=== PATIENT | female | born 1945 | race Caucasian/White ===

== ENCOUNTER → 2016-10-27 | Outpatient (CLI) | payer MEDICARE, MEDICAID ==
[~2016-10-27] MED LIST: ALBU17IN2 INH; ARIC10TA PO; ATEN25TA PO; BUSP10TA PO; DULC100C PO; EFFE150C PO; EFFE75CA75 PO; FLUT11IN INH; FURO20TA2 PO; KLOR1TAB69 PO; LORT5TAB PO; NEXI40CA PO; NITR4TASL SL; SIMV40TA2 PO; TIOT18INH INH; TRAZ50TA4 PO; ZOCO40TA PO; ZOLO50TA PO
--- NOTE | 2016-10-27 14:43 | REP ---
Whole body radionuclide bone scan The patient's history bladder cancer and presents for lymph nodes in the left chest wall. There are no comparison bone scans. Scanning is performed from the calvarium to the feet. Additionally oblique views of the ribs and pelvis are performed in lateral views of the calvarium in these are performed. On the lateral calvarial views there is focal uptake at the skull base on the left lateral view. Followup MRI might be considered to further evaluate. There is a degenerative pattern of uptake in the shoulders. There is no unusual uptake in the ribs or upper extremities except for focal increased uptake uptake at the base of the thumb on the left. There is faintly visible uptake at the base of the thumb on the right. This could be degenerative or post-traumatic. There is faintly visible uptake in the L5 vertebral body. There is a normal pattern of uptake in the pelvis. There is focal increased uptake at the medial joint line of the left knee, likely degenerative. There is focal increased uptake at the fibulotibial articulation of the right knee, also likely degenerative. Impression: There is a focus of increased uptake at the base of the calvarium on the left on the lateral calvarial views. Consider follow-up MRI to further evaluate. There is a degenerative uptake in the shoulders, thumb bases, and knees bilaterally. There is faintly visible uptake in the L5 vertebral body. Consider MRI to further evaluate. The study is performed with 19.9 mCi of technetium 99m labeled MDP. Signed by Leo Lynn MD 10/27/2016 02:36 P
== END ==
LOC: M RAD 10:39
PROVIDERS: ATTEND Physician Assistant
DX: R93.7 Abnormal findings on diagnostic imaging of other parts of musculoskeletal system (principal); Z85.51 Personal history of malignant neoplasm of bladder
CPT/HCPCS: 78306; A9503

== ENCOUNTER → 2016-11-07 | Outpatient (CLI) | payer MEDICARE, MEDICAID ==
--- NOTE | 2016-11-07 14:42 | REP ---
MRI CERVICAL SPINE WITHOUT AND WITH IV CONTRAST: HISTORY: Neck pain. History of bladder carcinoma. Pain radiating to the rib and shoulder area. TECHNIQUE: Axial and sagittal T1 and T2-weighted scans were obtained with without fat saturation in the usual fashion. Post-gadolinium enhanced T1 axial and sagittal images are also included. MRI FINDINGS: Craniocervical junction is normal. Cervical cord is normal in coarse, caliber and signal intensity on T1 and T2-weighted scans. There is no evidence of skeletal metastatic disease. Cervical vertebral body heights are preserved and alignment is normal. There is diffuse degenerative spondylosis change with degenerative disc disease at C3-4, C4-5, C5-6, C6-7 and to a lesser extent in the upper thoracic levels. Axial and sagittal images at the C2-3 show no significant abnormality. At C3-4, there is diffuse posterior disc bulging effacing the ventral subarachnoid space and contacting the ventral margin of the cord. No cord compression is seen. There is bilateral uncovertebral spurring at C3-4, however. At C4-5, there are similar changes with diffuse bulging and osteophytic ridging and bilateral uncovertebral spurring, mild in degree. At C5-6, diffuse disc bulging and posterior osteophytic ridging is seen effacing the ventral subarachnoid space. No cord compression is seen. Mild bilateral uncovertebral spurring is seen. Bilateral neural foraminal narrowing. At C6-7, there is posterior osteophytic ridging and diffuse disc bulging. Bilateral uncovertebral spurring and mild bilateral neural foraminal narrowing is seen. At C7-T1, there is no significant finding. There is central disc bulging at T2-T3. IMPRESSION: Moderate degenerative spondylosis change. Multilevel neural foraminal narrowing from uncovertebral spurring. No cord compressive lesion is seen. Signed by John Arguello MD 11/07/2016 03:59 P
--- NOTE | 2016-11-07 14:59 | REP ---
MRI LUMBAR SPINE WITHOUT AND WITH IV GADOLINIUM: HISTORY: Low back pain. History of bladder carcinoma. Questionable abnormality at L5 on radionuclide bone scan from October 27 2016. TECHNIQUE: Sagittal and axial imaging planes were utilized. T1 and T2-weighted scans were obtained with and without fat saturation in the usual fashion. The gadolinium enhancement dose is 9.6 mL , half-dose protocol, of intravenous ProHance. Post gadolinium enhanced axial and sagittal images are included. FINDINGS: Lumbar vertebral body heights are preserved. Alignment is normal except at L4-L5 where there is a grade 1 spondylolisthesis measuring 5 mm. This is due to degenerative disc and osteoarthritic facet disease. Advanced degenerative disc and facet changes are seen at this level. Advanced degenerative disc disease changes are noted at L5-S1 along with moderate facet changes. Degenerative spondylosis changes are also noted in the lesser degree at L3-4 and L2-3. The conus medullaris terminates at T12 and is unremarkable in appearance. At L2-3, there is diffuse disc bulging effacing the ventral margin of the thecal sac. No central canal stenosis or neural foraminal narrowing is seen. At L3-4, there is diffuse disc bulging and some posterior osteophytic ridging. There is left sided neural foraminal narrowing due to foraminal disc bulging. No central canal stenosis is seen. At L4-5, there is bilateral neural foraminal narrowing, right greater than left due to the spondylolisthesis as well as the disc bulging and facet hypertrophy. Mild central canal stenosis is noted at L4-5. Ligamentum flavum hypertrophy contributes to this as well as disc bulging. L5-S1, there is moderate osteoarthritic facet disease bilaterally. Diffuse disc bulging is seen. There is mild left-sided neural foraminal narrowing. IMPRESSION: Degenerative spondylosis changes as above. There is no evidence to suggest skeletal metastatic disease. Degenerative spondylosis changes most pronounced at L4-5 and L5-S1. No abnormal gadolinium enhancement is appreciated. Signed by John Arguello MD 11/07/2016 03:59 P
== END ==
LOC: M RAD 10:24
PROVIDERS: ATTEND Physician Assistant
DX: M47.812 Spondylosis without myelopathy or radiculopathy, cervical region (principal); M25.78 Osteophyte, vertebrae; M47.817 Spondylosis without myelopathy or radiculopathy, lumbosacral region; M47.816 Spondylosis without myelopathy or radiculopathy, lumbar region; M43.17 Spondylolisthesis, lumbosacral region
CPT/HCPCS: 72156; 72158; A9576

== ENCOUNTER → 2020-08-12 | Outpatient (CLI) | payer MEDICARE, MEDICAID ==
[~2020-08-12] MED LIST changes: -ARIC10TA PO; +ARIC1TAB2 PO; -EFFE150C PO; +EFFE150C2 PO; +EFFE75CA2 PO; -EFFE75CA75 PO; -SIMV40TA2 PO; +SIMV40TA20 PO; +TRAZ-252 PO; -TRAZ50TA4 PO
== END ==
LOC: M LABSMTC 13:08
PROVIDERS: ATTEND Family Medicine
DX: Z20.822 Contact with and (suspected) exposure to COVID-19 (principal)

== ENCOUNTER 2020-11-12 20:14 | Emergency (ER) | payer MEDICARE, MEDICAID ==
[~2020-11-12] VITALS: Ht 152.4 cm; Wt 45.5 kg
[2020-11-12] MEDS ORDERED: methylPREDNISolone 125MG 2ML VIAL IV ONE (21:35)
[2020-11-12] MEDS ORDERED: IPRATROPIUM 0.5MG/ALBUTEROL 2.5MG INH SOL UD 3ML (DUONEB) NEB ONE (21:35)
[2020-11-12 22:02] LABS: BASO % 0.4 % (0.0-1.0); EOS # 0.1 10^3/uL (0.0-0.5); EOS % 1.7 % (0.0-3.0); HEMOGLOBIN 13.5 g/dl (12.0-15.5); LYMPH # 2.5 10^3/uL (1.5-5.0); LYMPH % 29.5 % (24.0-44.0); MEAN CORPUSCULAR HEMOGLOBIN 30.4 pg (27.0-33.0); MEAN CORPUSCULAR HGB CONC 33.8 g/dl (32.0-36.5); MEAN CORPUSCULAR VOLUME 90.1 fl (80.0-96.0); MONO # 0.8 10^3/uL (0.0-0.8); MONO % 9.9 % (2.0-8.0); NEUTROPHILS # 4.9 10^3/uL (1.5-8.5); NEUTROPHILS % 58.1 % (36.0-66.0); PLATELET COUNT, AUTOMATED 268 10^3/uL (150-450); RED BLOOD COUNT 4.44 10^6/uL (4.00-5.40); WHITE BLOOD COUNT 8.4 10^3/uL (4.0-10.0)
[2020-11-12 22:12] LABS: INR 1.09; PROTHROMBIN TIME 14.4 SECONDS (12.5-14.3)
[2020-11-12 22:32] LABS: ALBUMIN 3.1 GM/DL (3.2-5.2); ALT/SGPT 13 U/L (12-78); BILIRUBIN,DIRECT 0.1 MG/DL (0.0-0.2); BILIRUBIN,TOTAL 0.3 MG/DL (0.2-1.0); BLOOD UREA NITROGEN 14 MG/DL (7-18); CALCIUM LEVEL 9.3 MG/DL (8.8-10.2); CARBON DIOXIDE LEVEL 30 MEQ/L (21-32); CHLORIDE LEVEL 104 MEQ/L (98-107); CK-MB VALUE MASS < 1.0 NG/ML (<3.6); CPK CREATINE PHOSPHOKINASE 37 U/L (26-192); GLOMERULAR FILTRATION RATE > 60.0 (>39); GLUCOSE, FASTING 106 MG/DL (70-100); NT-PRO BNP 198 PG/ML (<450); POTASSIUM SERUM 3.4 MEQ/L (3.5-5.1); SODIUM LEVEL 140 MEQ/L (136-145); THYROID STIMULATING HORMONE 0.361 uIU/ML (0.358-3.740); TOTAL PROTEIN 5.5 GM/DL (6.4-8.2); TROPONIN I < 0.02 NG/ML (< 0.10)
[2020-11-12] MEDS ORDERED: POTASSIUM CHLORIDE 10 MEQ SR TABLET PO ONE (22:40)
--- NOTE | 2020-11-12 22:53 | REPVR ---
PROCEDURE INFORMATION: Exam: XR Chest Exam date and time: 11/12/2020 10:25 PM Age: 75 years old Clinical indication: Shortness of breath; Additional info: Dyspnea/cough TECHNIQUE: Imaging protocol: XR of the chest. Views: 2 views. COMPARISON: CR Chest, 2 view PA, Lat 05/08/2015 9:11 AM FINDINGS: Lungs: The mild left base atelectasis or scar which is slightly increased since the prior study. Pulmonary hyperinflation with increased lucency of lung, particularly the upper lobes. The right lung is unchanged. Pleural spaces: Unremarkable. No pleural effusion. No pneumothorax. Heart/Mediastinum: The heart and mediastinum are unchanged. Bones/joints: Unremarkable. IMPRESSION: 1. Suggestion of some degree of COPD which is similar to 05/08/2015. 2. Mild left base atelectasis or scar which is slightly increased since the prior study. 3. Otherwise stable chest. Electronically signed by: Marcello Batista On 11/12/2020 22:54:19 PM
[2020-11-12 23:00] VITALS: BP 149/65
[2020-11-12 23:22] VITALS: O2SAT 93
[2020-11-12] MEDS ORDERED: PRED20TA PO (23:34)
--- NOTE | 2020-11-13 19:50 | ECGEPIP ---
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
[2020-11-16] MEDS ORDERED: INCR1INH PO (23:29)
== END 2020-11-13 00:30 | disposition home or self-care (01) ==
LOC: M ED 20:14
DX: J44.1 Chronic obstructive pulmonary disease with (acute) exacerbation (principal); I10 Essential (primary) hypertension; E78.5 Hyperlipidemia, unspecified; K21.9 Gastro-esophageal reflux disease without esophagitis; G47.30 Sleep apnea, unspecified; C67.9 Malignant neoplasm of bladder, unspecified; F17.200 Nicotine dependence, unspecified, uncomplicated; Z88.1 Allergy status to other antibiotic agents; Z88.8 Allergy status to other drugs, medicaments and biological substances
CPT/HCPCS: 71046; 80048; 80076; 82550; 82553; 83880; 84443; 84484; 85025; 85610; 93005; 93041; 94640; 94760; 96374; 99285; J2930

== ENCOUNTER 2020-11-16 19:35 | Emergency (ER) | payer MEDICARE, MEDICAID ==
[~2020-11-16] VITALS: Ht 152.4 cm; Wt 45.5 kg
[~2020-11-16 19:35] MED LIST changes: +PRED20TA PO
[2020-11-16] MEDS: COMBIVENT RESPIMAT 100-20MCG INHALER 4GM INH SCH ×3 (21:00→21:45)
[2020-11-16] MEDS ORDERED: methylPREDNISolone 125MG 2ML VIAL IV ONE (21:05)
[2020-11-16 21:15] LABS: BASO % 0.2 % (0.0-1.0); EOS % 0.1 % (0.0-3.0); HEMATOCRIT 44.9 % (36.0-47.0); HEMOGLOBIN 14.7 g/dl (12.0-15.5); LYMPH # 2.2 10^3/uL (1.5-5.0); LYMPH % 18.1 % (24.0-44.0); MEAN CORPUSCULAR HEMOGLOBIN 30.5 pg (27.0-33.0); MEAN CORPUSCULAR HGB CONC 32.7 g/dl (32.0-36.5); MEAN CORPUSCULAR VOLUME 93.2 fl (80.0-96.0); MONO # 0.8 10^3/uL (0.0-0.8); MONO % 6.8 % (2.0-8.0); NEUTROPHILS % 73.8 % (36.0-66.0); PLATELET COUNT, AUTOMATED 318 10^3/uL (150-450); RED BLOOD COUNT 4.82 10^6/uL (4.00-5.40); WHITE BLOOD COUNT 12.1 10^3/uL (4.0-10.0)
[2020-11-16 21:26] LABS: ALBUMIN 3.4 GM/DL (3.2-5.2); ALT/SGPT 26 U/L (12-78); BILIRUBIN,DIRECT 0.1 MG/DL (0.0-0.2); BILIRUBIN,TOTAL 0.2 MG/DL (0.2-1.0); BLOOD UREA NITROGEN 15 MG/DL (7-18); CALCIUM LEVEL 9.5 MG/DL (8.8-10.2); CARBON DIOXIDE LEVEL 28 MEQ/L (21-32); CHLORIDE LEVEL 110 MEQ/L (98-107); CK-MB VALUE MASS 1.3 NG/ML (<3.6); CPK CREATINE PHOSPHOKINASE 29 U/L (26-192); CREATININE FOR GFR 0.69 MG/DL (0.55-1.30); GLOMERULAR FILTRATION RATE > 60.0 (>39); GLUCOSE, FASTING 101 MG/DL (70-100); MB/CK RELATIVE INDEX 4.48 (< OR =4); NT-PRO BNP 552 PG/ML (<450); POTASSIUM SERUM 4.4 MEQ/L (3.5-5.1); SODIUM LEVEL 143 MEQ/L (136-145); TROPONIN I < 0.02 NG/ML (< 0.10)
--- NOTE | 2020-11-16 21:54 | REPVR ---
PROCEDURE INFORMATION: Exam: XR Chest Exam date and time: 11/16/2020 9:39 PM Age: 75 years old Clinical indication: Cough and dyspnea; Additional info: Dyspnea/cough TECHNIQUE: Imaging protocol: XR of the chest. Views: 1 view. COMPARISON: CR Chest, 2 view PA, Lat 11/12/2020 10:12 PM FINDINGS: Lungs: There is prominence of markings in the infrahilar regions and hyperinflation of the lungs probably the result of changes of COPD. The left lung base is now clear Pleural spaces: There is no evidence of pneumothorax or pleural effusion. Heart/Mediastinum: The heart is normal in size. Bones/joints: Mild osteophyte formation right and left shoulder. IMPRESSION: Changes of COPD. Electronically signed by: Spike Scruggs On 11/16/2020 21:55:46 PM
--- NOTE | 2020-11-16 22:51 | ECGEPIP ---
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
[2020-11-16] MEDS ORDERED: INCR1INH INH (23:29)
[2020-11-16] MEDS ORDERED: TRAM50TA2 PO (23:29)
[2020-11-16] MEDS ORDERED: GABA600T4 PO (23:29)
[2020-11-16] MEDS ORDERED: PRED20TA PO (23:36)
[2020-11-16 23:41] VITALS: BP 140/63
== END 2020-11-16 23:52 | disposition home or self-care (01) ==
LOC: M ED 19:35
DX: J44.1 Chronic obstructive pulmonary disease with (acute) exacerbation (principal); F17.210 Nicotine dependence, cigarettes, uncomplicated; C67.9 Malignant neoplasm of bladder, unspecified; Z88.1 Allergy status to other antibiotic agents; Z88.8 Allergy status to other drugs, medicaments and biological substances
CPT/HCPCS: 36600; 71045; 80048; 80076; 82550; 82553; 82803; 83605; 83880; 84484; 85025; 87798; 93005; 93041; 96374; 99285; J2930

== ENCOUNTER 2020-11-18 16:49 | Emergency (ER) | payer MEDICARE, MEDICAID ==
[~2020-11-18] VITALS: Ht 152.4 cm; Wt 45.5 kg
[2020-11-18 16:49] VITALS: BP 116/56
[~2020-11-18 16:49] MED LIST changes: +GABA600T4 PO; +INCR1INH PO; +TRAM50TA2 PO
== END 2020-11-18 18:10 | disposition left against medical advice (07) ==
LOC: M ED 16:49
DX: Z53.21 Procedure and treatment not carried out due to patient leaving prior to being seen by health care provider (principal)

== ENCOUNTER 2020-11-22 18:06 | Emergency (ER) | payer MEDICARE, MEDICAID ==
[~2020-11-22] VITALS: Ht 152.4 cm; Wt 45.5 kg
[~2020-11-22 18:06] MED LIST changes: +INCR1INH INH; -INCR1INH PO
--- NOTE | 2020-11-22 18:43 | REP ---
INDICATION: DYSPNEA/COUGH COMPARISON: 11/16/2020 TECHNIQUE: Portable AP view of the chest FINDINGS: The mediastinum and cardiac silhouette are stable and within normal limits for portable technique. The lung knowles demonstrate diffuse chronic changes and emphysematous disease. Superimposed left lower lobe atelectasis/early infiltrate cannot be excluded. No effusion. No pneumothorax. IMPRESSION: Chronic changes with suspected superimposed left lower lobe atelectasis/early infiltrate. <Electronically signed by Matt Harman > 11/22/20 [id number]
[2020-11-22 18:48] LABS: BASO % 0.1 % (0.0-1.0); HEMATOCRIT 44.2 % (36.0-47.0); HEMOGLOBIN 14.6 g/dl (12.0-15.5); LYMPH # 0.5 10^3/uL (1.5-5.0); LYMPH % 6.5 % (24.0-44.0); MEAN CORPUSCULAR VOLUME 90.9 fl (80.0-96.0); MONO # 0.2 10^3/uL (0.0-0.8); MONO % 1.9 % (2.0-8.0); NEUTROPHILS % 90.6 % (36.0-66.0); PLATELET COUNT, AUTOMATED 298 10^3/uL (150-450); RED BLOOD COUNT 4.86 10^6/uL (4.00-5.40); WHITE BLOOD COUNT 7.7 10^3/uL (4.0-10.0)
[2020-11-22 19:25] LABS: ALBUMIN 3.7 GM/DL (3.2-5.2); ALT/SGPT 41 U/L (12-78); BILIRUBIN,DIRECT 0.3 MG/DL (0.0-0.2); BILIRUBIN,TOTAL 0.6 MG/DL (0.2-1.0); BLOOD UREA NITROGEN 21 MG/DL (7-18); CALCIUM LEVEL 9.3 MG/DL (8.8-10.2); CARBON DIOXIDE LEVEL 25 MEQ/L (21-32); CHLORIDE LEVEL 106 MEQ/L (98-107); CK-MB VALUE MASS 1.2 NG/ML (<3.6); CPK CREATINE PHOSPHOKINASE 49 U/L (26-192); CREATININE FOR GFR 0.65 MG/DL (0.55-1.30); GLOMERULAR FILTRATION RATE > 60.0 (>39); GLUCOSE, FASTING 123 MG/DL (70-100); MB/CK RELATIVE INDEX 2.45 (< OR =4); NT-PRO BNP 420 PG/ML (<450); POTASSIUM SERUM 4.1 MEQ/L (3.5-5.1); SODIUM LEVEL 139 MEQ/L (136-145); THYROID STIMULATING HORMONE 0.174 uIU/ML (0.358-3.740); TROPONIN I < 0.02 NG/ML (< 0.10)
[2020-11-22 20:11] VITALS: O2SAT 93
[2020-11-22 20:30] VITALS: BP 135/67
--- NOTE | 2020-11-22 22:09 | ECGEPIP ---
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
--- NOTE | 2020-11-23 07:42 | ED PDOC ---
Post-Departure Follow-Up dr mani smyth faxed formal report of cxr for fu José Antonio Durham MD Nov 23, 2020 07:42
[2020-11-23] MEDS ORDERED: FLUT11IN INH (19:35)
[2020-11-23] MEDS ORDERED: PRED20TA PO (19:35)
[2020-11-23] MEDS ORDERED: POTA10TA67 PO (19:35)
[2020-11-23] MEDS ORDERED: MEMA10TA19 PO (19:35)
[2020-11-23] MEDS ORDERED: BREO1INH3 INH (19:35)
[2020-11-23] MEDS ORDERED: ALPH0.156 OU (19:35)
[2020-11-23] MEDS ORDERED: OMEP-221 PO (19:35)
[2020-11-23] MEDS ORDERED: ALBU8.5H INH (19:35)
[2020-11-23] MEDS ORDERED: TRAZ-189 PO (19:35)
== END 2020-11-22 20:30 | disposition home or self-care (01) ==
LOC: M ED 18:06
DX: J44.1 Chronic obstructive pulmonary disease with (acute) exacerbation (principal); I10 Essential (primary) hypertension; F17.200 Nicotine dependence, unspecified, uncomplicated

== ENCOUNTER 2020-11-23 14:26 | Inpatient (IN) | payer MEDICARE, MEDICAID ==
[~2020-11-23] VITALS: Ht 152.4 cm; Wt 39.2 kg
[2020-11-23] MEDS ORDERED: methylPREDNISolone 125MG 2ML VIAL IV ONE (15:40)
[2020-11-23] MEDS ORDERED: ALBUTEROL 90 MCG/ACT 8GM HFA INHALER INH ONE (15:40)
[2020-11-23] MEDS ORDERED: NS 1,000 ML IV ONE (15:40)
[2020-11-23 16:28] LABS: BASO % 0.1 % (0.0-1.0); HEMATOCRIT 44.6 % (36.0-47.0); HEMOGLOBIN 14.8 g/dl (12.0-15.5); LYMPH # 0.4 10^3/uL (1.5-5.0); LYMPH % 4.3 % (24.0-44.0); MEAN CORPUSCULAR HEMOGLOBIN 30.2 pg (27.0-33.0); MEAN CORPUSCULAR HGB CONC 33.2 g/dl (32.0-36.5); MONO # 0.4 10^3/uL (0.0-0.8); MONO % 3.9 % (2.0-8.0); NEUTROPHILS # 8.4 10^3/uL (1.5-8.5); NEUTROPHILS % 90.8 % (36.0-66.0); PLATELET COUNT, AUTOMATED 277 10^3/uL (150-450); WHITE BLOOD COUNT 9.3 10^3/uL (4.0-10.0)
[2020-11-23 17:05] LABS: ALBUMIN 3.7 GM/DL (3.2-5.2); ALT/SGPT 35 U/L (12-78); BILIRUBIN,DIRECT 0.2 MG/DL (0.0-0.2); BILIRUBIN,TOTAL 0.6 MG/DL (0.2-1.0); CK-MB VALUE MASS 1.1 NG/ML (<3.6); CPK CREATINE PHOSPHOKINASE 47 U/L (26-192); MB/CK RELATIVE INDEX 2.34 (< OR =4); NT-PRO BNP 568 PG/ML (<450); THYROXINE (T4) 6.3 UG/DL (4.5-12.0); TOTAL PROTEIN 6.1 GM/DL (6.4-8.2); TROPONIN I < 0.02 NG/ML (< 0.10)
[2020-11-23] MEDS ORDERED: cefTRIAXone SOD 1 GM in D5W MINI-BAG PLUS 50 ML IV ONE (17:25)
[2020-11-23 17:26] LABS: INR 0.95; PROTHROMBIN TIME 12.9 SECONDS (12.5-14.3)
[2020-11-23 17:34] LABS: D-DIMER QUANT 387.21 ng/ml (<500)
[2020-11-23] MEDS ORDERED: ISOVUE-370 76% 100ML VIAL As Ordered ONE (17:59)
[2020-11-23] MEDS ORDERED: AZITHROMYCIN INJ 500 MG, VIAL MATE ADAPTER 1 EACH in NS 250 ML IV ONE (18:00)
--- NOTE | 2020-11-23 18:31 | REPVR ---
PROCEDURE INFORMATION: Exam: CTA Chest With Contrast Exam date and time: 11/23/2020 5:44 PM Age: 75 years old Clinical indication: Shortness of breath; Additional info: Increased SOB TECHNIQUE: Imaging protocol: Computed tomographic angiography of the chest with contrast. 3D rendering (Not supervised by radiologist): MIP and/or 3D reconstructed images were created by the technologist. Radiation optimization: All CT scans at this facility use at least one of these dose optimization techniques: automated exposure control; mA and/or kV adjustment per patient size (includes targeted exams where dose is matched to clinical indication); or iterative reconstruction. Contrast material: ISOVUE 370; Contrast volume: 75 ml; Contrast route: INTRAVENOUS (IV); COMPARISON: CR PORTABLE CHEST X-RAY 11/22/2020 6:32 PM FINDINGS: Pulmonary arteries: There is enlargement of the central pulmonary arteries, findings which can be associated with pulmonary arterial hypertension which should be correlated clinically. There are no pulmonary emboli. Aorta: There is no aortic dissection or aneurysm. There is mild atherosclerosis in the thoracic aorta. Great vessels off aortic arch: 50% narrowing at the origin of the left subclavian artery. Other arteries: Mild atherosclerotic changes in the brachiocephalic artery without significant stenosis. Lungs: Moderate to severe paraseptal and centrilobular emphysema. COPD. Pleural spaces: Lobular and spiculated mass in the right lower lobe measures 1.2 x 1.6 x 1.4 cm extending to the posteromedial pleural surface associated with focal pleural thickening. Finding worrisome for a malignancy. Further evaluation with PET imaging suggested if clinically desired. Heart: Unremarkable. No cardiomegaly. No pericardial effusion. Lymph nodes: Unremarkable. No enlarged lymph nodes. Bones/joints: The spine demonstrates mild degenerative changes. Age-indeterminate compression deformity at L1. Clinical correlation to exclude acute compression fracture suggested. Osteoporosis. Shallow dextroscoliosis. Soft tissues: Unremarkable. IMPRESSION: 1. Moderate to severe paraseptal and centrilobular emphysema. COPD. 2. Lobular and spiculated mass in the right lower lobe measures 1.2 x 1.6 x 1.4 cm extending to the posteromedial pleural surface associated with focal pleural thickening. Finding worrisome for a malignancy. Further evaluation with PET imaging suggested if clinically desired. 3. There is no aortic dissection or aneurysm. 4. There is enlargement of the central pulmonary arteries, findings which can be associated with pulmonary arterial hypertension which should be correlated clinically. 5. There are no pulmonary emboli. 6. 50% narrowing at the origin of the left subclavian artery. 7. Age-indeterminate compression deformity at L1. Clinical correlation to exclude acute compression fracture suggested. Electronically signed by: Feliz Nelson On 11/23/2020 18:31:14 PM
--- NOTE | 2020-11-23 19:24 | HPEPDOC ---
[facility] Medical History & Physical Date of Admission Nov 23, 2020 Date of Service: Nov 23, 2020 Primary Care Physician: Madhu Larose MD Attending Physician: KRZYSZTOF DE LA CRUZ MD History and Physical TIME OF SERVICE: 830PM CHIEF COMPLAINT: dyspnea HISTORY OF PRESENT ILLNESS: This 75yr old F initially presented to the ER on w c/o dyspnea, was diagnosed w PNA & acute COPD and sent home w abx for 9 days and is still on steroids. After she finished the abx her dyspnea got worse so she returned to the ER; she denied having fevers or BLE edema, her chronic cough is the same, and she has been feeling dizzy. She feels better after receiving solumedrol. REVIEW OF SYSTEMS: 12-point review of systems negative except as listed in HPI PAST MEDICAL/ SURGICAL HISTORY: Lung Mass (per patient has been present for years / benign ?) Papillary TCC of the bladder COPD/Emphysema Chronic O2 dep respiratory failure 3 L Osteoporosis L1 fx Probable Pulm HTN Depression DLP Dementia GERD Essential HTN Chronic CAD Insomnia Inguinal herniorrhaphy Diverticulitis Cystocele Rectocele SOCIAL HISTORY: former smoker FAMILY HISTORY: Lung cancer and Cervical CA ALLERGIES: Please see below. HOME MEDICATIONS: Please see below. PHYSICAL EXAMINATION: Vital Signs Date Time Temp Pulse Resp B/P (MAP) Pulse Ox O2 Delivery O2 Flow Rate FiO2 11/23/20 14:28 98.5 96 20 119/55 (76) 94 Nasal Cannula 3.0 GENERAL APPEARANCE: cachectic / NAD HEENT: NC in place /lips acyanotic CARDIOVASCULAR: RRR/NMRG / no LE edema LUNGS: not using accessory muscles to breath / breath sounds diminished ABDOMEN: scaphoid / soft & NT MUSCULOSKELETAL: NCAT INTEGUMENT: skin warm and well perfused NEUROLOGICAL: CN 2-12 grossly intact / speech not dysarthric PSYCHIATRIC: A&O /able to understand and follow simple commands LABORATORY DATA: Immature Granulocyte % (Auto) 0.9, Neutrophils (%) (Auto) 90.8H, Lymphocytes (%) (Auto) 4.3L, Monocytes (%) (Auto) 3.9, Eosinophils (%) (Auto) 0.0, Basophils (%) (Auto) 0.1, Neutrophils # (Auto) 8.4, Lymphocytes # (Auto) 0.4L, Monocytes # (Auto) 0.4, Eosinophils # (Auto) 0.0, Basophils # (Auto) 0.0, Nucleated Red Blood Cells % (auto) 0.0, Prothrombin Time 12.9, Prothromb Time International Ratio 0.95, D-Dimer, Quantitative 387.21, Lactic Acid Level 3.9*H, Total Bilirubin 0.6, Direct Bilirubin 0.2, Aspartate Amino Transf (AST/SGOT) 19, Alanine Aminotransferase (ALT/SGPT) 35, Alkaline Phosphatase 110, Total Creatine Kinase 47, Creatine Kinase MB 1.1, Creatine Kinase MB Relative Index 2.34, Troponin I < 0.02, SW-Xum-E-Type Natriuretic Peptide 568H, Total Protein 6.1L, Albumin 3.7, Albumin/Globulin Ratio 1.5, Thyroid Stimulating Hormone (TSH) 0.14 0L, Thyroxine (T4) 6.3 11/23/20 16:17: POC Glucose (Misc Panel) 181H, POC Sodium (Misc Panel) 138, POC Potassium (Misc Panel) 4.3, POC Chloride (Misc Panel) 103, POC Total CO2 (Misc Panel) 29.0H, POC Blood Urea Nitrogen (Misc Panel 28H, POC Ionized Calcium (Misc Panel) 4.8, POC Creatinine (Misc Panel) 0.8, POC Hematocrit (Misc Panel) 46.0 11/23/20 16:32: POC Total CO2 (Misc Panel) 26.0, POC pH (Misc Panel) 7.463H, POC Base Excess (Misc Panel) 2.0, POC Saturated Percent O2 (Misc) 99H, POC pO2 (Misc Panel) 124.0H, POC pCO2 (Misc Panel) 35.5, POC HCO3 (Misc Panel) 25.4 IMAGING: CT chest IMPRESSION: 1. Moderate to severe paraseptal and centrilobular emphysema. COPD. 2. Lobular and spiculated mass in the right lower lobe measures 1.2 x 1.6 x 1.4 cm extending to the posteromedial pleural surface associated with focal pleural thickening. Finding worrisome for a malignancy. Further evaluation with PET imaging suggested if clinically desired. 3. There is no aortic dissection or aneurysm. 4. There is enlargement of the central pulmonary arteries, findings which can be associated with pulmonary arterial hypertension which should be correlated clinically. 5. There are no pulmonary emboli. 6. 50% narrowing at the origin of the left subclavian artery. 7. Age- indeterminate compression deformity at L1. Clinical correlation to exclude acute compression fracture suggested." MICROBIOLOGY: respiratory panel neg ASSESSMENT: is a 75 yr old w COPD w chronic O2 dep resp failure, lung mass, remote hx of bladder CA, osteoporosis, Depression, Dementia ? HTN & CAD who is admitted for a recurrent acute COPD. PLAN: 1 Recurrent acute COPD with chronic O2 dependent respiratory failure Cause of exacerbation unclear ( ABG, D-dimer, respiratory panel unremarkable Received solumedrol & abx in ER [place] chronic obstructive pulmonary disease risk scare (OCRS) guide to admission vs discharge in COPD exacerbation = 3 points = high risk for adverse outcomes Plan: admit to [facility] / supplemental O2 / continuous pulse oximetry / aspiration precautions / COPD diet / Prednisone w PPI / DuoNeb Q6H, Albuterol Q1HP/ will hold off abx bc her cough has not changed/ she can f/u w as scheduled to titrate her meds (and discuss starting Roflumilast to prevent another exacerbation ) / Pulm Rehab is not available / bc of her O2 dependent COPD, pulmonary cachexia and frequent hospital visits for acute COPD she is likely a candidate for Pallative care, she can f/u w her PCP or for a referral 2 SIRS Tachycardia w Tachypnea are likely reactive aSOFA Score = 1 = not high risk Respiratory panel and CT chest neg for viral or bacterial pathogens Plan: monitor vitals / initiate sepsis protocol / f/u blood cx / 3 Lactic acidosis Likely 2/2 poor PO intake in the setting of dehydration Plan: IVF / trend lactic acid 4 RLL lung mass (benign?) Plan: f/u w PCP for Onc or Palliative care referral 5 Sarcopenia / Pulmonary Cachexia Plan: f/u pre-albumin / day time team may consider doctor of naprapathy consult 6 Osteoporosis L1 fx Plan: Ca w vitamin D / f/u w PCP to discuss anti-resorptive therapty 7 Depression / Other Psych conditions ? Plan: trazadone Buspirone Sertraline Venlafaxine 8 Dementia Plan; Donepezil 9 Essential HTN Plan: atenolol DVT px w Lovenox Dispo: home after less than 2 midnights stay Home Medications Scheduled Brimonidine Tartrate (Alphagan P) 0.15% 5ML Drops, 1 DROP OU TID Buspirone HCl (Buspirone HCl) 10 Mg Tab, 10 MG PO TID Donepezil HCl (Aricept) 10 Mg Tab, 10 MG PO QHS Fluticasone/Vilanterol (Breo Ellipta 200-25 Mcg INH) 1 Each Blst.w.dev, 1 PUFF INH DAILY Gabapentin (Gabapentin) 600 Mg Tablet, 600 MG PO TID Memantine HCl (Memantine HCl) 10 Mg Tablet, 10 MG PO QHS Omeprazole (Omeprazole) 40 Mg Capsule.dr, 40 MG PO DAILY Potassium Chloride (Potassium Chloride) 10 Meq Tab.er.prt, 10 MEQ PO TID Prednisone (Prednisone) 20 Mg Tablet, 20 MG PO BID Sertraline Hcl (Zoloft) 50 Mg Tab, 50 MG PO DAILY Simvastatin (Zocor) 40 Mg Tab, 20 MG PO QHS 60MG TOTAL QHS Simvastatin (Simvastatin) 40 Mg Tab, 40 MG PO QHS 60MG TOTAL QHS Trazodone HCl (Trazodone HCl) 100 Mg Tablet, 200 MG PO QHS Umeclidinium Malin (Incruse Ellipta) 62.5 Mcg Blst.w.dev, 1 PUFF INH DAILY Scheduled PRN Albuterol Sulfate (Albuterol Sulfate Hfa) 8.5 Gm Hfa.aer.ad, 2 PUFFS INH QID PRN for SHORTNESS OF BREATH Tramadol HCl (Tramadol HCl) 50 Mg Tablet, 50 MG PO QID PRN for BACK PAIN Allergies Coded Allergies: Quinolones (Verified Allergy, Severe, cipro,levaquin=tongue and throat swelling, 11/12/20) erythromycin base (Verified Allergy, Unknown, 11/12/20) A-FIB/CHADSVASC A-FIB History Current/History of A-Fib/PAF?: No Current PO Anticoag Therapy: No KRZYSZTOF DE LA CRUZ MD Nov 23, 2020 19:24
[2020-11-23] MEDS ORDERED: ACETAMINOPHEN TAB 650MG DOSE (2X325MG) PO PRN (19:25)
[2020-11-23] MEDS ORDERED: MOM 30ML SUSPENSION UDC PO PRN (19:25)
[2020-11-23] MEDS ORDERED: ALBUTEROL SULFATE 2.5 MG/0.5 ML INH NEB SOLN NEB PRN (19:25)
[2020-11-23] MEDS ORDERED: MAALOX 30 ML SUSP *UDC PO PRN (19:25)
[2020-11-23] MEDS ORDERED: ALPH0.156 OU (19:35)
[2020-11-23] MEDS ORDERED: TRAZ-189 PO (19:35)
[2020-11-23] MEDS ORDERED: ALBU8.5H INH (19:35)
[2020-11-23] MEDS ORDERED: PRED20TA PO (19:35)
[2020-11-23] MEDS ORDERED: POTA10TA67 PO (19:35)
[2020-11-23] MEDS ORDERED: MEMA10TA19 PO (19:35)
[2020-11-23] MEDS ORDERED: BREO1INH3 INH (19:35)
[2020-11-23] MEDS ORDERED: OMEP-221 PO (19:35)
[2020-11-23] MEDS ORDERED: FLUT11IN INH (19:35)
[2020-11-23 19:55] LABS: VENOUS BASE EXCESS -0.9 (-2.0-2.0); VENOUS HCO3 22.5 MEQ/L (23.0-27.0); VENOUS O2 SATURATION 97.7 % (60.0-80.0); VENOUS PARTIAL PRESSURE CO2 33.2 mmHg (38.0-50.0); VENOUS PARTIAL PRESSURE O2 100.8 mmHg (30.0-50.0); VENOUS PH 7.448 UNITS (7.330-7.430); VENOUS STANDARD HCO3 23.8 MEQ/L; VENOUS TOTAL CO2 23.5 MEQ/L (24.0-28.0)
[2020-11-23] MEDS ORDERED: traMADol 50 MG TAB PO PRN (20:10)
--- NOTE | 2020-11-23 20:30 | ECGEPIP ---
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
[2020-11-23 20:40] VITALS: BP 122/77
[2020-11-23] MEDS: busPIRone 10 MG TAB PO SCH (20:55)
[2020-11-23] MEDS: NS 1,000 ML IV SCH (20:55)
[2020-11-23] MEDS: POTASSIUM CHLORIDE 10 MEQ SR TABLET PO SCH (20:56)
[2020-11-23] MEDS: GABAPENTIN 300 MG CAP PO SCH (20:56)
[2020-11-23] MEDS ORDERED: MEMANTINE 5MG TABLET (NAMENDA) PO SCH (21:00)
[2020-11-23] MEDS ORDERED: traZODone 100 MG TAB PO SCH (21:00)
[2020-11-23] MEDS ORDERED: DONEPEZIL 5 MG TAB PO SCH (21:00)
[2020-11-23] MEDS: IPRATROPIUM 0.5MG/ALBUTEROL 2.5MG INH SOL UD 3ML (DUONEB) NEB SCH (21:01)
[2020-11-23] MEDS: BRIMONIDINE 0.15% OPHTH SOLN 5 ML OU SCH (23:26)
[2020-11-23 23:30] VITALS: O2SAT 98
[2020-11-24] MEDS ORDERED: DALI1TAB2 PO (00:39)
[2020-11-24] MEDS: IPRATROPIUM 0.5MG/ALBUTEROL 2.5MG INH SOL UD 3ML (DUONEB) NEB SCH ×2 (02:00→07:12)
[2020-11-24 06:00] VITALS: BP 127/74
[2020-11-24 07:09] LABS: HEMATOCRIT 37.3 % (36.0-47.0); MEAN CORPUSCULAR HGB CONC 33.2 g/dl (32.0-36.5); MEAN CORPUSCULAR VOLUME 93.3 fl (80.0-96.0); PLATELET COUNT, AUTOMATED 226 10^3/uL (150-450); WHITE BLOOD COUNT 9.8 10^3/uL (4.0-10.0)
[2020-11-24 07:16] LABS: HEMOGLOBIN 12.4 g/dl (12.0-15.5)
[2020-11-24 07:35] LABS: BLOOD UREA NITROGEN 17 MG/DL (7-18); CARBON DIOXIDE LEVEL 29 MEQ/L (21-32); CHLORIDE LEVEL 113 MEQ/L (98-107); CREATININE FOR GFR 0.65 MG/DL (0.55-1.30); GLOMERULAR FILTRATION RATE > 60.0 (>39); GLUCOSE, FASTING 88 MG/DL (70-100); POTASSIUM SERUM 4.5 MEQ/L (3.5-5.1); SODIUM LEVEL 144 MEQ/L (136-145)
[2020-11-24] MEDS ORDERED: ALBUTEROL SULFATE 2.5 MG/0.5 ML INH NEB SOLN NEB PRN (08:05)
[2020-11-24] MEDS ORDERED: PANTOPRAZOLE 40MG TAB (PROTONIX) PO SCH (09:00)
[2020-11-24] MEDS ORDERED: ENOXAPARIN 40MG/0.4ML SYRINGE (J1650 PER 10MG) SC SCH (09:00)
[2020-11-24] MEDS ORDERED: SERTRALINE HCL 50 MG TAB PO SCH (09:00)
[2020-11-24] MEDS ORDERED: FLUBLOK(EGG FREE)(QUAD)INFLUENZA VACC 0.5ML SYRINGE 18YRS & OLDER IM ONE (09:00)
[2020-11-24] MEDS ORDERED: predniSONE 20 MG TAB PO SCH (09:00)
[2020-11-24] MEDS ORDERED: methylPREDNISolone 125MG 2ML VIAL IV SCH (09:00)
[2020-11-24] MEDS: busPIRone 10 MG TAB PO SCH (09:47)
[2020-11-24] MEDS: BRIMONIDINE 0.15% OPHTH SOLN 5 ML OU SCH (09:47)
[2020-11-24] MEDS: GABAPENTIN 300 MG CAP PO SCH (09:47)
[2020-11-24] MEDS: POTASSIUM CHLORIDE 10 MEQ SR TABLET PO SCH (09:48)
[2020-11-24 10:00] VITALS: BP 107/63
[2020-11-24] MEDS ORDERED: PANT40TA29 PO (12:35)
[2020-11-24] MEDS ORDERED: PRED10TA2 PO (12:35)
--- NOTE | 2020-11-24 12:52 | DS.PDOC ---
Discharge Summary General Date of Admission Nov 23, 2020 at 19:24 Date of Discharge 11/24/2020 Attending Physician: DOMINGO BUCKLEY MD Discharge Summary PROCEDURES PERFORMED DURING STAY: None ADMITTING DIAGNOSES: 1. COPD exacerbation DISCHARGE DIAGNOSES: COPD exacerbation Emphysema Chronic O2 dep respiratory failure on 3 L at baseline Spiculated Lung Mass with adjacent pleural thickening (With patient has been present for years / benign ?), will refer back for prompt pulm post discharge eval for follow up Papillary TCC of the bladder Osteoporosis L1 fx Probable Pulm HTN Depression DLP Dementia GERD Essential HTN Chronic CAD Insomnia COMPLICATIONS/CHIEF COMPLAINT: Copd With Acute Exacerbation. HISTORY OF PRESENT ILLNESS: 75yr old W who initially presented to the ED on 11/16/2020 w c/o dyspnea, and was diagnosed w CAP & acute COPD exacerbation and discharged home w abx for 9 days and a steroid taper who now returned to the ED after completion of her antibi otics and now down to 20mg daily of prednisone c/o worsening dyspnea without fevers, peripheral edema, no changes to her chronic cough. HOSPITAL COURSE: In the ED, she was given solumedrol 125mg IV and felt better and CTA chest showed moderate to severe paraseptal and centrilobular emphysema as well as a lobular and spiculated mass in the right lower lobe measuring 1.2 x 1.6 x 1.4 cm extending to the posteromedial pleural surface associated with focal pleural thickening. On discussing of the mass she noted that she follows with Dr. Johnson and that it was previously noted and at the time was benign. I am quite concerned about this mass and potential evolution. While her COPD exacerbation quickly got better after re-escalation of steroids, I will discharge her home with a slow taper starting back at 40mg PO prednisone but most importantly recommending prompt evaluation by Dr. Johnson who has followed a her lung nodule longitudinally and she may require biopsy and eventual oncology involvement if indicated. DISCHARGE MEDICATIONS: Please see below. ALLERGIES: Please see below. PHYSICAL EXAMINATION ON DISCHARGE: VITAL SIGNS: Please see below. GENERAL APPEARANCE: NAD, thin, cachetic HEENT: NCAT, EOMI, PERRLA, MMM CARDIOVASCULAR: RRR, no m/r/g, no LE edema LUNGS: Diminished throughout but without blane wet crackles, scattered dry velcro-like crackles at bases, no wheezing or rhonchi, on 2L nasal canula, speaking in full sentences ABDOMEN: scaphoid, normoactive bowel sounds throughout, NTND EXT: WWP, no LE edema NEUROLOGICAL: CN 2-12 grossly intact, speech not dysarthric, grossly nonfocal PSYCHIATRIC: A&Ox3, able to understand and follow commands LABORATORY DATA: please see below IMAGING: CT chest IMPRESSION: 1. Moderate to severe paraseptal and centrilobular emphysema. COPD. 2. Lobular and spiculated mass in the right lower lobe measures 1.2 x 1.6 x 1.4 cm extending to the posteromedial pleural surface associated with focal pleural thickening. Finding worrisome for a malignancy. Further evaluation with PET imaging suggested if clinically desired. 3. There is no aortic dissection or aneurysm. 4. There is enlargement of the central pulmonary arteries, findings which can be associated with pulmonary arterial hypertension which should be correlated clinically. 5. There are no pulmonary emboli. 6. 50% narrowing at the origin of the left subclavian artery. 7. Age- indeterminate compression deformity at L1. Clinical correlation to exclude acute compression fracture suggested." PROGNOSIS: Good ACTIVITY: As tolerated DIET: Regular DISCHARGE PLAN: Home with prompt pulmonology follow up for spiculated lung mass DISPOSITION: Home DISCHARGE INSTRUCTIONS: Home with prompt pulmonology follow up for spiculated lung mass. ITEMS TO FOLLOWUP ON ON OUTPATIENT: Prompt pulmonology follow up for spiculated lung mass Resolution of COPD exacerbation DISCHARGE CONDITION: Stable TIME SPENT ON DISCHARGE: 34 minutes. Vital Signs/I&Os Vital Signs Date Time Temp Pulse Resp B/P (MAP) Pulse Ox O2 Delivery O2 Flow Rate FiO2 11/24/20 10:00 98.2 77 18 107/63 (78) 99 Nasal Cannula 3.0 I&O- Last 24 Hours up to 6 AM 11/24/20 06:00 Intake Total 2005 ml Output Total 0 ml Balance 2005 ml Laboratory Data Labs 24H Laboratory Tests 2 11/23/20 16:11: Immature Granulocyte % (Auto) 0.9, Neutrophils (%) (Auto) 90.8H, Lymphocytes (%) (Auto) 4.3L, Monocytes (%) (Auto) 3.9, Eosinophils (%) (Auto) 0.0, Basophils (%) (Auto) 0.1, Neutrophils # (Auto) 8.4, Lymphocytes # (Auto) 0.4L, Monocytes # (Auto) 0.4, Eosinophils # (Auto) 0.0, Basophils # (Auto) 0.0, Nucleated Red Blood Cells % (auto) 0.0, Prothrombin Time 12.9, Prothromb Time International Ratio 0.95, D-Dimer, Quantitative 387.21, Lactic Acid Level 3.9*H, Total Bilirubin 0.6, Direct Bilirubin 0.2, Aspartate Amino Transf (AST/SGOT) 19, Alanine Aminotransferase (ALT/SGPT) 35, Alkaline Phosphatase 110, Total Creatine Kinase 47, Creatine Kinase MB 1.1, Creatine Kinase MB Relative Index 2.34, Troponin I < 0.02, PI-Zxh-C-Type Natriuretic Peptide 568H, Total Protein 6.1L, A lbumin 3.7, Albumin/Globulin Ratio 1.5, Thyroid Stimulating Hormone (TSH) 0.140L, Thyroxine (T4) 6.3 11/23/20 16:17: POC Glucose (Misc Panel) 181H, POC Sodium (Misc Panel) 138, POC Potassium (Misc Panel) 4.3, POC Chloride (Misc Panel) 103, POC Total CO2 (Misc Panel) 29.0H, POC Blood Urea Nitrogen (Misc Panel 28H, POC Ionized Calcium (Misc Panel) 4.8, POC Creatinine (Misc Panel) 0.8, POC Hematocrit (Misc Panel) 46.0 11/23/20 16:32: POC Total CO2 (Misc Panel) 26.0, POC pH (Misc Panel) 7.463H, POC Base Excess (Misc Panel) 2.0, POC Saturated Percent O2 (Misc) 99H, POC pO2 (Misc Panel) 124.0H, POC pCO2 (Misc Panel) 35.5, POC HCO3 (Misc Panel) 25.4 11/23/20 19:40: Lactic Acid Level 2.4*H, Blood Gas Bicarbonate Standard 23.8, Venous Blood pH 7.448H, Venous Blood Partial Pressure CO2 33.2L, Venous Blood Partial Pressure O2 100.8H, Venous Blood Total Carbon Dioxide 23.5L, Venous Blood HCO3 22.5L, Venous Blood Oxygen Saturation 97.7H, Venous Blood Base Excess -0.9, Prealbumin 24.1 11/23/20 23:40: Bedside Glucose (Misc Panel) 117H 11/24/20 00:06: Lactic Acid Followup at 4 Hours 2.6*H 11/24/20 06:12: Bedside Glucose (Misc Panel) 93 11/24/20 06:19: Nucleated Red Blood Cells % (auto) 0.0, Anion Gap 2L, Glomerular Filtration Rate > 60.0, Calcium Level 8.0L CBC/BMP Laboratory Tests 11/23/20 16:11 11/24/20 06:19 FSBS Laboratory Tests Test 11/23/20 23:40 11/24/20 06:12 Range/Units Bedside Glucose (Misc Panel) 117 93 83-110 MG/DL Microbiology Microbiology 11/23/20 Blood Culture, Received Pending 11/23/20 Respiratory Virus Panel (PCR) (KATYA) - Final, Complete Discharge Medications Scheduled Brimonidine Tartrate (Alphagan P) 0.15% 5ML Drops, 1 DROP OU TID, (Reported) Buspirone HCl (Buspirone HCl) 10 Mg Tab, 10 MG PO TID, (Reported) Donepezil HCl (Aricept) 10 Mg Tab, 10 MG PO QHS, (Reported) Fluticasone/Vilanterol (Breo Ellipta 200-25 Mcg INH) 1 Each Blst.w.dev, 1 PUFF INH DAILY, (Reported) Gabapentin (Gabapentin) 600 Mg Tablet, 600 MG PO TID, (Reported) Memantine HCl (Memantine HCl) 10 Mg Tablet, 10 MG PO QHS, (Reported) Omeprazole (Omeprazole) 40 Mg Capsule.dr, 40 MG PO DAILY, (Reported) Pantoprazole Sodium (Pantoprazole Sodium) 40 Mg Tablet.dr, 40 MG PO DAILY Potassium Chloride (Potassium Chloride) 10 Meq Tab.er.prt, 10 MEQ PO TID, (Reported) Prednisone (Prednisone) 10 Mg Tablet, 1 TAB PO ASDIRECTED 4omg daily for 5d, then 30mg daily for 5d, then 20mg daily for 5d, then 10mg daily for 5d. Sertraline Hcl (Zoloft) 50 Mg Tab, 50 MG PO DAILY, (Reported) Simvastatin (Zocor) 40 Mg Tab, 20 MG PO QHS, (Reported) 60MG TOTAL QHS Simvastatin (Simvastatin) 40 Mg Tab, 40 MG PO QHS, (Reported) 60MG TOTAL QHS Trazodone HCl (Trazodone HCl) 100 Mg Tablet, 200 MG PO QHS, (Reported) Umeclidinium [place] (Incruse Ellipta) 62.5 Mcg Blst.w.dev, 1 PUFF INH DAILY, (Reported) Scheduled PRN Albuterol Sulfate (Albuterol Sulfate Hfa) 8.5 Gm Hfa.aer.ad, 2 PUFFS INH QID PRN for SHORTNESS OF BREATH, (Reported) Tramadol HCl (Tramadol HCl) 50 Mg Tablet, 50 MG PO QID PRN for BACK PAIN, (Repo rted) Allergies Coded Allergies: Quinolones (Verified Allergy, Severe, cipro,levaquin=tongue and throat swelling, 11/12/20) erythromycin base (Verified Allergy, Unknown, 11/12/20) DOMINGO BUCKLEY MD Nov 24, 2020 12:49
--- NOTE | 2020-11-24 12:54 | IPNPDOC ---
Text Note Date of Service The patient was seen on 11/24/20. NOTE SUBJECTIVE: -Remains on 3-4L NC OBJECTIVE: GENERAL APPEARANCE: NAD, thin, cachetic HEENT: NCAT, EOMI, PERRLA, MMM CARDIOVASCULAR: RRR, no m/r/g, no LE edema LUNGS: Diminished throughout but without blane wet crackles, scattered dry crackles at bases, no wheezing or rhonchi, on 3L nasal canula, speaking in full sentences ABDOMEN: scaphoid, normoactive bowel sounds throughout, NTND EXT: WWP, no LE edema NEUROLOGICAL: CN 2-12 grossly intact, speech not dysarthric, grossly nonfocal PSYCHIATRIC: A&Ox3, able to understand and follow commands LABORATORY DATA: WBC 9.8 hgb 12.4 Platelets 226 Na 144 K 4.5 Cr 0.65 IMAGING: CT chest IMPRESSION: 1. Moderate to severe paraseptal and centrilobular emphysema. COPD. 2. Lobular and spiculated mass in the right lower lobe measures 1.2 x 1.6 x 1.4 cm extending to the posteromedial pleural surface associated with focal pleural thickening. Finding worrisome for a malignancy. Further evaluation with PET imaging suggested if clinically desired. 3. There is no aortic dissection or aneurysm. 4. There is enlargement of the central p ulmonary arteries, findings which can be associated with pulmonary arterial hypertension which should be correlated clinically. 5. There are no pulmonary emboli. 6. 50% narrowing at the origin of the left subclavian artery. 7. Age- indeterminate compression deformity at L1. Clinical correlation to exclude acute compression fracture suggested." MICROBIOLOGY: respiratory panel neg ASSESSMENT: 75 yr old w COPD w chronic O2 dep resp failure on home 3L, lung mass, remote hx of bladder CA, osteoporosis, Depression, Dementia ? HTN & CAD who is admitted for a recurrent acute COPD. PLAN: Recurrent acute COPD with chronic O2 dependent respiratory failure -ABG, D-dimer, respiratory panel unremarkable -Received solumedrol & abx in ER -supplemental O2 to goal >89% -aspiration precautions -Pred 40 PO daily w PPI -DuoNeb Q6H -Albuterol Q4HP -will hold off abx bc her cough has not changed and no evidence of ongoing PNA -will need outpatient f/u w as scheduled to titrate her meds (and d iscuss starting Roflumilast) Spiculated lung mass with associated pleural thickening: -Reports previously being told that is was benign? Recommend prompt pulm f/u for highly suspicious lesion as Dr. Johnson has followed it longitudinally. Lactic acidosis -Likely 2/2 poor PO intake in the setting of dehydration -s/p IVF Osteoporosis L1 fx -Ca w vitamin D / f/u w PCP to discuss anti-resorptive therapy Depression / Other Psych conditions ? -Trazadone Buspirone Sertraline Venlafaxine Dementia -Donepezil Essential HTN -Atenolol DVT px w Lovenox Dispo: medsurg VS,Fishbone, I+O VS, Fishbone, I+O Laboratory Tests 11/23/20 16:11 11/24/20 06:19 Vital Signs Date Time Temp Pulse Resp B/P (MAP) Pulse Ox O2 Delivery O2 Flow Rate FiO2 11/24/20 06:00 98.0 62 18 127/74 (91) 96 Nasal Cannula 3.0 I&O- Last 24 Hours up to 6 AM 11/24/20 06:00 Intake Total 2004 ml Output Total 0 ml Balance 2005 ml DOMINGO BUCKLEY MD Nov 24, 2020 08:26
[2020-11-24] MEDS: NS 1,000 ML IV SCH (13:29)
[2020-11-25] MEDS ORDERED: predniSONE 20 MG TAB PO SCH (09:00)
== END 2020-11-24 15:25 | disposition home or self-care (01) | DRG 191 ==
LOC: M ED 14:26 → M ED INP 19:24 → ENRESERV 19:48 → M MSPAV 20:35
PROVIDERS: ADMIT Internal Medicine; ATTEND Internal Medicine
DX: J44.1 Chronic obstructive pulmonary disease with (acute) exacerbation (principal); J96.10 Chronic respiratory failure, unspecified whether with hypoxia or hypercapnia; M80.08XA Age-related osteoporosis with current pathological fracture, vertebra(e), initial encounter for fracture; G47.00 Insomnia, unspecified; I25.10 Atherosclerotic heart disease of native coronary artery without angina pectoris; I10 Essential (primary) hypertension; K21.9 Gastro-esophageal reflux disease without esophagitis; F03.90 Unspecified dementia, unspecified severity, without behavioral disturbance, psychotic disturbance, mood disturbance, and anxiety; F32.9 Major depressive disorder, single episode, unspecified; I27.20 Pulmonary hypertension, unspecified; R91.1 Solitary pulmonary nodule; Z79.899 Other long term (current) drug therapy; Z79.52 Long term (current) use of systemic steroids; Z88.8 Allergy status to other drugs, medicaments and biological substances; Z85.51 Personal history of malignant neoplasm of bladder; K57.30 Diverticulosis of large intestine without perforation or abscess without bleeding; Z99.81 Dependence on supplemental oxygen

== ENCOUNTER 2020-11-28 14:22 | Emergency (ER) | payer MEDICARE, MEDICAID ==
[~2020-11-28 14:22] MED LIST changes: +ALBU8.5H INH; +ALPH0.156 OU; +BREO1INH3 INH; +DALI1TAB2 PO; +MEMA10TA19 PO; +OMEP-221 PO; +PANT40TA29 PO; +POTA10TA67 PO; +PRED10TA2 PO; +TRAZ-189 PO
[2020-11-28 14:35] VITALS: BP 177/77
[2020-11-28] MEDS ORDERED: IPRATROPIUM 0.5MG/ALBUTEROL 2.5MG INH SOL UD 3ML (DUONEB) NEB ONE (14:40)
== END 2020-11-28 15:15 | disposition left against medical advice (07) ==
LOC: M ED 14:22 → EDBD 14:22 → M ED 15:15
DX: J44.9 Chronic obstructive pulmonary disease, unspecified (principal); Z53.9 Procedure and treatment not carried out, unspecified reason; I10 Essential (primary) hypertension; E78.5 Hyperlipidemia, unspecified; Z79.899 Other long term (current) drug therapy